=== PATIENT | female | born 1945 | race Caucasian/White ===

== ENCOUNTER 2018-02-15 10:13 | Emergency (ER) | payer OTHER, MEDICARE ==
[~2018-02-15] VITALS: Ht 157.5 cm; Wt 77.1 kg
[2018-02-15 11:08] LABS: ABSOLUTE BASOPHIL COUNT 0 /CUMM (0.0-0.2); ABSOLUTE EOSINOPHIL COUNT 0 /CUMM (0.0-0.7); ABSOLUTE GRANULOCYTE CT 10.3 /CUMM (1.4-6.5); ABSOLUTE LYMPH COUNT 1.4 /CUMM (1.2-3.4); ABSOLUTE MONOCYTE COUNT 0.9 /CUMM (0.10-0.60); BASOPHIL % 0.3 % (0.0-2.0); EOSINOPHIL % 0 % (0-5); GRANULOCYTE % 81.3 % (42.2-75.2); HEMATOCRIT 47.1 % (37-47); MEAN CORPUSCULAR HGB 31.7 PG (27.0-31.0); MEAN CORPUSCULAR VOLUME 95.8 FL (81.0-99.0); MEAN PLATELET VOLUME 7.1 FL (7.4-10.4); PLATELET COUNT 238 /CUMM (130-400); RBC DISTRIBUTION WIDTH 14.1 % (11.5-14.5); RED BLOOD CELL CT 4.92 /CUMM (4.20-5.40); WHITE BLOOD CELL COUNT 12.7 /CUMM (4.8-10.8)
--- NOTE | 2018-02-15 11:10 | CT SCAN REPORT ---
EXAMINATION: CT HEAD WITHOUT CONTRAST CT CERVICAL SPINE WITHOUT CONTRAST CLINICAL INFORMATION: Stroke protocol. COMPARISON: None TECHNIQUE: CT of the head and cervical spine were performed without intravenous contrast. Multiplanar reformats were rendered and reviewed. DLP: 972 mGy-cm. FINDINGS: CT head: There is large intraparenchymal hematoma in the right frontal lobe measuring up to 7.8 cm with marginating edema. Hemorrhage has dissected into the ventricular system and fills the right lateral ventricle, third ventricle, both atria and occipital horns and fourth ventricle. There is acute hydrocephalus. There is diffuse scattered subarachnoid hemorrhage. There is diffuse effacement of the bilateral cerebral sulci. As a result of the intraparenchymal hematoma and edema there is rightward midline shift measuring 12 mm and associated right subfalcine herniation with some medialization of the right uncus, and narrowing of the suprasellar cistern. There is no CT evidence of large territory infarction. There is no calvarial fracture. There are scattered paranasal sinus opacification including in the left maxillary sinus. Mastoid air cells are clear. 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 CT cervical spine: The cervical vertebral bodies maintain normal heights and alignment. No acute fracture is seen. The anterior and posterior arch of C1 is not fused and there are superimposed degenerative changes at the atlantoaxial and occipital atlantal articulations. The anterior atlantodental interval is mildly widened which is apparently on a chronic degenerative basis. 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 There is multilevel diffuse disc height loss, bulky endplate spurring, and uncovertebral and facet arthropathy resulting in varying degrees of spinal canal and neural foraminal stenosis. However, there is no severe spinal canal stenosis except as detailed above. The lung apices are clear. The thyroid gland is heterogeneous in attenuation and is diffusely enlarged. The central airway is patent. IMPRESSION: CT head: - Large intraparenchymal hematoma in the right frontal lobe measuring up to 7.8 cm with associated marginating edema resulting in 12 mm of leftward midline shift, right subfalcine herniation, and narrowing of the suprasellar cistern. - Large amount of hemorrhage within the ventricles with associated acute hydrocephalus. Additional scattered subarachnoid hemorrhage is also present. - The bilateral cerebral sulci are effaced which likely reflects in part, developing cerebral edema. CT cervical spine: - No cervical spine fracture or malalignment. - Severe spinal canal stenosis at C2 and C3 related to large ossification of the posterior longitudinal ligament. - Advanced degenerative changes at the craniovertebral junction related in part to incomplete fusion of the anterior and posterior lateral arch. - Advanced multilevel degenerative spondylotic changes with multilevel spinal canal and neural foraminal stenosis. This critical result was discussed with DAVIN Mcdonald on 02/15/2018 10:58 AM, and it was ascertained that the content and urgency of the report was understood at the time of direct communication.
[2018-02-15 11:16] LABS: PT 13.6 SEC (9.4-12.5); PTT 27 SEC (25-37)
--- NOTE | 2018-02-15 11:25 | CT SCAN REPORT ---
EXAMINATION: CT CHEST, ABDOMEN AND PELVIS WITHOUT CONTRAST. CLINICAL INFORMATION: Altered mental status. COMPARISON: No pertinent prior studies are available for comparison. TECHNIQUE: Multidetector volumetric imaging was performed from the thoracic inlet through the pubic symphysis without contrast. Multiplanar reformats were rendered and reviewed. Total exam dose-length product 1075 mGy-cm FINDINGS: CHEST: LUNG: The central airways are patent. There is consolidation in the right lower lobe as well as patchy areas of consolidation in the right upper lobe which may reflect aspiration. The left lung is clear. There is no suspicious nodule or mass. MEDIASTINUM: The mediastinum in normal. The central vascular structures are unremarkable. No hilar or mediastinal lymphadenopathy. CHEST WALL/AXILLA: Unremarkable. ABDOMEN: LIVER, GALLBLADDER, AND BILIARY TREE: The liver is normal in size, shape, and attenuation. No focal hepatic lesion or biliary ductal dilatation is present. The gallbladder is unremarkable with no evidence of radiopaque gallstones, gallbladder wall thickening, or obvious pericholecystic inflammatory changes. PANCREAS: Normal; no mass or surrounding fluid. SPLEEN: Normal size. No focal lesion. ADRENAL GLANDS: Normal; no mass. KIDNEYS AND URETERS: The kidneys are normal in size, shape, and attenuation. No hydronephrosis, hydroureter, or calculi. GASTROINTESTINAL TRACT: Stomach and small bowel non-dilated. No colonic wall thickening or pericolonic inflammatory changes. ABDOMINAL WALL: No significant hernia is appreciated. LYMPHOVASCULAR STRUCTURES: Mild atheromatous changes in the abdominal aorta and its branch vessels. PELVIS: BLADDER: No focal mass or wall thickening seen. No bladder calculi. PELVIC VISCERA: No pelvic mass. FREE FLUID: None. OSSEOUS STRUCTURES INCLUDING THE THORACIC AND LUMBAR SPINE: Advanced multilevel degenerative changes throughout the thoracic and lumbar spine with disc height loss, endplate spurring and sclerosis, and facet arthropathy. There are postoperative changes extending from L5 to S1 with transpedicular screws and posterior stabilization rods. There is no evidence of acute fracture. IMPRESSION: - Consolidation in the right lung which may reflect the sequela of recent aspiration. Left lung is clear. Central airways are patent. - No acute abnormality in the abdomen or pelvis. - Multilevel degenerative changes throughout the thoracic and lumbar spine with postoperative changes from L4 to S1.
--- NOTE | 2018-02-15 11:28 | ED GENERAL ADULT ---
History of Present Illness General Chief Complaint: General Adult Stated Complaint: BIBA UNRESPONSIVE Source: patient, EMS Exam Limitations: unable to give history, confusion, physical impairment Vital Signs & Intake/Output Vital Signs & Intake/Output Vital Signs Date Time Temp Pulse Resp B/P B/P Pulse O2 O2 Flow FiO2 Mean Ox Delivery Rate 02/15 1116 100 02/15 1104 97.0 114 18 109/73 100 Ventilator 100% 02/15 1038 113 20 155/90 85 Non 100% ReBreather Allergies Coded Allergies: No Known Allergies (02/15/18) Triage Note: 72F BIBA FOR AMS. ARRIVES UNRESPONSIVE, TACHYPNIC WITH GARGLED BREATH SOUNDS AND 91-95% ON HIGH FLOW NRB MASK. PREHOSP ACCUCHECK 176. ARRIVES GSC 3 AND INCONTINENT OF LARGE AMOUNT OF URINE AND SOFT BROWN STOOL. PT LAST SEEN NORMAL LAST NIGHT AND FOUND BY FAMILY TO BE ALTERED. IMMEDIATELY UPON ARRIVAL PUPILS NOTED TO BE ASYMMETRICAL WITH NO RESPONSE TO LIGHT, RIGHT PUPIL 4MM AND FIXED WITH OPACITY AND LEFT PUPIL 2MM AND FIXED. DR HSU AND DAVIN GARCIA IMMEDIATELY NOTIFIED AND PT TO CT FOR HEAD R/O CVA. Triage Nurses Notes Reviewed? yes Onset: Abrupt Duration: day(s): Timing: recent history HPI: 02/15/18 72-year-old female presents to the emergency department for altered mental status. According to the patient's daughter and EMS the patient was found unresponsive at home this morning. She complained of a headache last night. On arrival to the emergency department she had a right lateral gaze preference and flaccid paralysis. Right pupil is sluggish and slightly reactive. Past medical history is otherwise limited. CT scan of the head revealed a massive intracranial bleed. The head was elevated and she was intubated with a size 7 endotracheal tube. 20 mg of etomidate was utilized to facilitate the intubation. Initial attempts revealed significant secretions and anesthesia was paged to assist in intubation. Postintubation there was good yellow to purple color change on the end-tidal CO2 monitor, good breath sounds were heard bilaterally, and a chest x- ray was immediately ordered. Her oxygen saturation. Was 98%. I had a long discussion with the prognosis and the low likelihood of functional recovery with the daughter. I also discussed the case with the on-call neurosurgeon Dr. Linares as well has the [place] neurosurgeon Dr. Dempsey. The patient will be transferred to [place]. They will review the scans and have further discussion with the daughter to decide if neurosurgical intervention is warranted. Past History Travel History Traveled to [place] past 21 day No Medical History Any Pertinent Medical History? see below for history Neurological: NONE EENT: NONE Cardiovascular: hypertension Respiratory: NONE Gastrointestinal: NONE Hepatic: NONE Renal: NONE Musculoskeletal: NONE Psychiatric: NONE Endocrine: NONE Blood Disorders: NONE Cancer(s): NONE Surgical History Surgical History: none Psychosocial History What is your primary language Italian Tobacco Use: UN Family History Hx Contributory? No Review of Systems Review of Systems Constitutional: Reports: no symptoms. EENTM: Reports: no symptoms. Respiratory: Reports: no symptoms. Cardiovascular: Reports: no symptoms. GI: Reports: no symptoms. Genitourinary: Reports: no symptoms. Musculoskeletal: Reports: no symptoms. Skin: Reports: no symptoms. Neurological/Psychological: Reports: see HPI. Hematologic/Endocrine: Reports: no symptoms. Immunologic/Allergic: Reports: no symptoms. Physical Exam Physical Exam General Appearance: severe distress Head: RIGHT LATERAL GAZE PREFERENCE. RIGHT PUPIL IS SLUGGISHLY REACTIVE Ears, Nose, Throat: THICK SECRETIONS Neck: supple Respiratory: GOOD BREATH SOUNDS BILATERALLY Cardiovascular: regular rate/rhythm Peripheral Pulses: 3+ radial (R), 3+ radial (L) Gastrointestinal: non-tender Back: decreased range of motion Extremities: pedal edema Neurologic/Psych: FLACCID PARALYSIS Skin: intact Core Measures ACS in differential dx? No CVA/TIA Diagnosis: Yes NIH Stroke Scale (24 Hours) NIH Stroke Scale (24 Hours) Response Value Level of Consciousness coma 3 LOC Questions incorrect 2 LOC Commands incorrect 2 Best Gaze forced deviation 2 Motor Arm - Left no movement 4 Motor Arm - Right no movement 4 Motor Leg - Left no movement 4 Motor Leg - Right no movement 4 Best Language mute 3 Dysarthria intubated/physical campbell 0 Total 28 Date Last Known Well: 02/14/18 Reason tPA not ordered Medical Contraindication Swallow Evaluation Not Applicable Sepsis Present: No Sepsis Focused Exam Completed? No Progress Differential Diagnoses I considered the following diagnoses in my evaluation of the patient: [ Intracranial bleed, coagulopathy] Plan of Care: Orders Procedure Date/time Status LACTIC ACID 02/15 1346 Active VENTILATOR PARAMETERS 02/15 1121 Complete XRY-PORTABLE CHEST XRAY 02/15 1046 Active TROPONIN LEVEL 02/15 1046 Active PARTIAL THROMBOPLASTIN TIME 02/15 1046 Complete PROTHROMBIN TIME 02/15 1046 Complete LACTIC ACID 02/15 1046 Active COMPREHENSIVE METABOLIC PANEL 02/15 1046 Active CBC WITHOUT DIFFERENTIAL 02/15 1046 Complete Current Medications Sig/William Start time Last Medication Dose Stop Time Status Admin Mannitol 500 ML ONCE ONE 02/15 1145 AC (Osmitrol 500 Ml) 02/15 1244 Mannitol 12.5 GM ONE ONE 02/15 1130 CANr (Mannitol Injection 02/15 1131 12.5GM Per 50ML) Laboratory Tests 02/15/18 1052: Anion Gap 15, Estimated GFR 55 L, BUN/Creatinine Ratio Pending, Glucose 172 H, Lactic Acid 3.4 H, Calcium 9.8, Total Bilirubin 1.3, AST 41 H, ALT 31, Alkaline Phosphatase 98, Troponin I Pending, Total Protein 7.8, Albumin 4.5, Globulin 3.3, Albumin/Globulin Ratio Pending, PT 13.6 H, INR 1.24 H, APTT 27, CBC w Diff NO MAN DIFF REQ, RBC 4.92, MCV 95.8, MCH 31.7 H, MCHC 33.0, RDW 14.1 , MPV 7.1 L, Gran % 81.3 H, Lymphocytes % 11.4 L, Monocytes % 7.0, Eosinophils % 0, Basophils % 0.3, Absolute Granulocytes 10.3 H, Absolute Lymphocytes 1.4, Absolute Monocytes 0.9 H, Absolute Eosinophils 0, Absolute Basophils 0 Initial ED EKG: NSR Departure Departure Disposition: OTHER [facility] ([facility]) Condition: Stable Clinical Impression Primary Impression: Intracranial hemorrhage Referrals: Unknown (PCP/Family) Departure Forms: Customer Survey General Discharge Information Comments The patient was subsequently transferred to [place]. Dr. Liu suggested head elevation and 100 g of mannitol be given. Critical Care Note Critical Care Note Critical Care Time: 30-74 min
[2018-02-15 11:43] VITALS: BP 122/78
--- NOTE | 2018-02-15 11:52 | RADIOLOGY REPORT ---
EXAMINATION: XR PORTABLE CHEST CLINICAL INFORMATION: Confirmation of ET tube placement. COMPARISON: Chest CT performed earlier the same day. TECHNIQUE: Portable frontal view of the chest was obtained. FINDINGS: There has been interval placement of an endotracheal tube which terminates 3 cm from the angie. There are patchy airspace opacities throughout the right lung. The left lung is clear. No pleural effusion or pneumothorax. The cardiomediastinal silhouette appears normal. IMPRESSION: Satisfactory appearance of the endotracheal tube which terminates 3 cm from the angie. Patchy airspace opacities in the right lung.
== END 2018-02-15 12:10 | disposition short-term general hospital (02) ==
LOC: ERH 10:13
PROVIDERS: Emergency Medicine
DX: I62.9 Nontraumatic intracranial hemorrhage, unspecified (principal); I10 Essential (primary) hypertension
CPT/HCPCS: 1344; 1387; 71045; 74176; 87086; 94799; 96374; 96375; 99291